=== PATIENT | female | born 1985 | race Caucasian/White ===

== ENCOUNTER 2019-07-06 09:32 | Emergency (ER) | payer OTHER, SELFPAY ==
[2019-07-06] MEDS ORDERED: Ibuprofen 200 MG TAB ONE (10:19)
--- NOTE | 2019-07-06 11:10 | RAD ---
RIGHT KNEE 4 VIEWS: Date: 07/06/19 HISTORY: Recently diagnosed with a medial condylar fracture on 05/25/19. Knee has been bothering him. COMPARISON: None available. FINDINGS: There is an obliquely oriented fracture which extends to the intercondylar notch. It is seen as an ar ea of lucency along the distal femoral shaft. It appears to represent a healing nondisplaced fracture . IMPRESSION: Obliquely oriented fracture which begins more along the medial side of the distal femoral shaft exten ding into the intercondylar region as a nondisplaced fracture. POS: [facility]
== END 2019-07-06 11:42 | disposition home or self-care (01) ==
LOC: ERS 09:32
DX: M25.561 Pain in right knee (principal); S72.414D Nondisplaced unspecified condyle fracture of lower end of right femur, subsequent encounter for closed fracture with routine healing; I10 Essential (primary) hypertension; F17.210 Nicotine dependence, cigarettes, uncomplicated; F32.9 Major depressive disorder, single episode, unspecified; W01.0XXA Fall on same level from slipping, tripping and stumbling without subsequent striking against object, initial encounter